=== PATIENT | female | born 1965 | race Caucasian/White ===

== ENCOUNTER 2024-02-25 15:04 | Outpatient (AMB) | payer OTHER, SELFPAY ==
--- NOTE | 2024-02-25 15:05 | A.OFFVIS_ITS ---
Vital Signs 02/25/24 15:20 Height 5 ft 5 in Weight 176 lb 12.972 oz BMI 29.4 BP 112/60 Blood Pressure Location Lt brachial Position Sitting Pulse 89 Pulse Source Pulse Oximeter Pulse Oximetry (%) 96 Oxygen Delivery Method Room Air Intake Visit Reasons: travel specialist Intake Note: Patient presents for joint pain. Feeling pain everywhere. Been feeling chronic pain since 2010. Taking Tramadol and Gabapentin is not working. Having break through pain. Allergies ibuprofen [From Advil] Allergy (Severe, Verified 02/25/24 15:14) Shortness of Breath iodine Allergy (Severe, Verified 02/25/24 15:14) Anaphylaxis Penicillins [PENICILLINS] Allergy (Severe, Unverified 02/25/24 15:14) ANAPHYLAXIS sulfa Allergy (Severe, Uncoded 02/25/24 15:14) Shortness of Breath Medication List - Last Reconciled 02/25/24 by Marily Montgomery MD cyproheptadine 4 mg PO Q8-12H PRN fluticasone propion-salmeterol 100-50 mcg/dose (Advair Diskus) 1 inh inhalation BID gabapentin 100 mg PO BEDTIME linaclotide (Linzess) 145 mcg PO DAILY montelukast 10 mg PO DAILY ondansetron HCl 4 mg PO Q8H tramadol 50 mg PO BID PRN HPI Comments Details: This is a 58-year-old female who presents for evaluation of diffuse pain. She states that she has had diffuse pain since 2010. She states that she has poorly-controlled asthma. She states that she has not been able to find a good [employer]. She has shortness of breath walking. She states that she has difficulty sleeping at night due to shortness of breath. She has to use her nebulizer nightly. She has diffuse pain all the time. The pain is widespread without any swollen joints. She is unaware of any family history of an autoimmune rheumatic disease. Her sister has MS. She denies any history of DVT/PE. Denies any skin rashes. She states that she plucked out her eyebrows when she was young and they never grew back she had 6 pregnancies in total, 4 children and 2 miscarriages PFSH Medical History Breast implant status Asthma Family History Sister Multiple sclerosis Social History Household Members: Spouse Housing: House Alcohol intake: never Patient Tobacco Use Status: Never used Tobacco Female Reproductive History Menstrual Total pregnancies: 6 Full term: 4 Ab spontaneous: 2 Review of Systems Const Reports body aches, Reports fatigue and Reports weakness Card Reports dyspnea and Reports dyspnea on exertion Resp Reports cough, Reports dyspnea, Reports dyspnea on exertion and Reports wheezing Musc Reports myalgias and Denies joint swelling Skin/Breast Denies rash Neuro Reports weakness Endo Reports fatigue Aller/Immun Reports wheezing Physical Exam Vital Signs: Last Vital Signs Pulse 89 02/25/24 15:20 BP 112/60 02/25/24 15:20 Pulse Ox 96 02/25/24 15:20 Oxygen Delivery Method Room Air 02/25/24 15:20 BMI result Body Mass Index 29.4 Const General: cooperative, healthy appearing and comfortable Nutritional Appearance: overweight Orientation/consciousness: patient oriented x3 Limitations: no limitations HEENT Head: Yes normocephalic and Yes atraumatic Mouth: moist mucous membranes Resp Effort & Inspection: normal respiratory effort and able to speak in complete sentences Auscultation: wheezes expiratory wheezes and inspiratory wheezes Cardio Rate: regular rate Skin Other: Bilateral loss of eyebrow hair Neuro General: patient oriented x3 Extrem Other: osteoarthritic changes of both hands with prominent Heberden's nodes but no active synovitis Normal nailfold capillaroscopy Assessment & Plan Assessment & Plan (1) Fibromyalgia, primary: Code(s): M79.7 - Fibromyalgia Category: Medical Plan: This is a 58-year-old female who presents for evaluation of diffuse pain. Upon evaluation I do not see any evidence of an autoimmune rheumatic disease. Clinical picture consistent with fibromyalgia. Discussed management of fibromyalgia with patient. Is a noninflammatory, non-autoimmune central afferent processing disorder leading to a diffuse pain syndrome. I suggested that patient try to address her underlying psychiatric issues, anxiety/depression. I suggested evaluation by a therapist and/or a psychiatri st. Discussed that the mainstay of treatment of fibromyalgia is good quality sleep and regular exercise, patient has significant asthma however will not allow her to do both well in any meaningful way. She has to use her nebulizer nightly. She gets short of breath with walking I think patient should be evaluated by [employer] for better control of her asthma. I will refer her to pulmonology here Patient has bilateral Herotghe sign, follow-up with PCP, consider testing for hypothyroidism (2) Asthma: Code(s): J45.909 - Unspecified asthma, uncomplicated Category: Medical Qualifiers: Asthma severity: severe Asthma persistence: persistent Asthma complication type: uncomplicated Qualified Code(s): J45.50 - Severe persistent asthma, uncomplicated Plan: Referred to Pulmonary Plan I spent 47 minutes reviewing patient's chart, evaluating patient, placing orders, counseling patient and documenting in the chart Orders: Referrals Pulmonology Referral J45.909 - Unspecified asthma, uncomplicated Coding Level of Care Code New Pt Level 4 (76515) Diagnoses Fibromyalgia, primary M79.7 Severe persistent asthma without complication J45.50 Asthma severity: severe Asthma persistence: persistent Asthma complication type: uncomplicated
[2024-02-25 15:20] VITALS: BP 112/60; PULSE 89; O2SAT 96; BMI 29.4
== END 2024-02-25 15:50 | disposition home or self-care (01) ==
PROVIDERS: PCP Family Medicine; Visit Provider Student in an Organized Health Care Education/Training Program
DX: M79.7 Fibromyalgia (principal); J45.50 Severe persistent asthma, uncomplicated
CPT/HCPCS: 99204

== ENCOUNTER → 2024-02-25 15:04 | Outpatient (BNVA) | payer OTHER, SELFPAY | PROVIDERS: PCP Family Medicine; Visit Provider Student in an Organized Health Care Education/Training Program ==